=== PATIENT | male | born 1930 | race Caucasian/White ===

== ENCOUNTER 2016-07-24 12:48 | Inpatient (IN) | payer MEDICARE, BC ==
[2016-07-24] MEDS ORDERED: NS 0.9% 1000 ML* 1,000 ML IV SCH ×2 (13:00→15:45)
[2016-07-24 13:41] LABS: Hematocrit 42 % (42-52); Hemoglobin 12.8 g/dl (14.0-18.0); Mean Corpuscular HGB Conc 31 g/dl (31-36); Mean Corpuscular Hemoglobin 29 pg (27-31); Mean Corpuscular Volume 93 fL (80-94); Red Blood Count 4.47 10^6/ul (4.0-5.4); Red Cell Distribution Width 18 % (10.5-15); White Blood Count 17.6 10^3/ul (3.5-10.8)
[2016-07-24 13:53] LABS: Comments Flag Yes
[2016-07-24 14:05] LABS: Ammonia 52 mol/L (16-53)
[2016-07-24 14:08] LABS: B Type Natriuretic Peptide 1053 pg/mL; Troponin I 0.16 ng/mL (<0.04)
[2016-07-24 14:09] LABS: Albumin 2.7 g/dL (3.2-5.2); BUN/Creatinine Ratio 20.6 (8-20); C Reactive Protein 310.08 mg/L (< 5.00); Calcium 9.5 mg/dL (8.6-10.3); EGFR African American 16.3 (>60); EGFR Non-African American 12.6 (>60); Globulin 4.4 g/dL (2-4); Magnesium 2.9 mg/dL (1.9-2.7); Potassium 5.1 mmol/L (3.5-5.0); Total Bilirubin 0.6 mg/dL (0.2-1.0); Total Protein 7.1 g/dL (6.4-8.9)
--- NOTE | 2016-07-24 14:11 | RAD ---
HISTORY: Altered mental status COMPARISONS: April 20, 2016 VIEWS:1: Single frontal portable view of the chest at 1:45 PM FINDINGS: LINES AND TUBES: A left-sided pacemaker is noted CARDIOMEDIASTINAL SILHOUETTE: The cardiac silhouette is enlarged. The cardiomediastinal silhouette is otherwise normal for portable technique. PLEURA: The costophrenic angles are sharp. No pleural abnormalities are noted. LUNG PARENCHYMA: There is a diffuse reticular pattern with indistinct pulmonary vessels. ABDOMEN: The upper abdomen is clear. There is no subphrenic gas. BONES AND SOFT TISSUES: The patient is status post median sternotomy. IMPRESSION: CARDIOMEGALY WITH PULMONARY INTERSTITIAL EDEMA
[2016-07-24 14:12] LABS: Add Diff/Slide Review? Slide Review Added; Mean Platelet Volume 10 um3 (7.4-10.4)
[2016-07-24] MEDS ORDERED: NS 0.9% 1000 ML* 1,000 ML IV ONE (14:19)
[2016-07-24 14:41] LABS: TSH (Thyroid Stimulating Horm) 1.62 mcIU/mL (0.34-5.60)
[2016-07-24 15:11] VITALS: BP 99/59
[2016-07-24] MEDS ORDERED: Ondansetron INJ* 2 MG/ML VIAL IV PRN (15:38)
[2016-07-24] MEDS ORDERED: Acetaminophen SUPP* 650 MG SUPP PR PRN (15:38)
[2016-07-24] MEDS ORDERED: Atropine 1% (ORAL/SL)* 15 ML BTL SL PRN (15:49)
[2016-07-24] MEDS: Morphine INJ* 2 MG/ML 1 ML CARPUJECT IV PRN (15:59)
[2016-07-24] MEDS: LORazepam INJ* 2 MG/ML 1 ML VIAL IV PUSH PRN (15:59)
[2016-07-24] MEDS ORDERED: Cefepime(*) 0.5 GM in NS 0.9% 50 ML* 50 ML IVPB SCH (16:00)
--- NOTE | 2016-07-24 16:46 | ED ---
Eli Copeland Anna, scribed for Luis Myers MD on 07/24/16 at 1312 . Lower Extremity - HPI Summary HPI Summary: Patient is an 86 y/o male BIBA to [facility] presenting with pedal edema that began a few days ago. He has additionally had fluid buildup in his lungs. He frequently punches and pulls hair when he is alert, and he has bruising on his legs and arms because of this. His history is significant for CAD, dementia, DVT , prostate CA, a fib, and HTN. LEVEL 5 CAVEAT UNABLE TO OBTAIN FULL HISTORY DUE TO HISTORY OF DEMENTIA. - History of Current Complaint Chief Complaint: EDAltMentalStatus Stated Complaint: AMS Time Seen by Provider: 07/24/16 12:53 Hx Obtained From: EMS - Allergies/Home Medications Allergies/Adverse Reactions: Allergies Allergy/AdvReac Type Severity Reaction Status Date / Time Nitroglycerin Allergy Severe Headache Verified 04/20/16 22:05 Latex Allergy Unknown Unknown Verified 04/20/16 22:05 Reaction Details PMH/Surg Hx/FS Hx/Imm Hx Endocrine/Hematology History: Reports: Hx Anticoagulant Therapy Cardiovascular History: Reports: Hx Atrial Fibrillation, Hx Auto Implanted Cardiovert Defib, Hx Cardiomegaly, Hx Congestive Heart Failure, Hx Coronary Artery Disease, Hx Deep Vein Thrombosis, Hx Hypercholesterolemia, Hx Hypertension, Hx Pacemaker/ICD, Hx Peripheral Vascular Disease, Hx Syncope, Other Cardiovascular Problems/Disorders - lymphedema Respiratory History: Reports: Hx Chronic Obstructive Pulmonary Disease (COPD), Hx Pneumonia, Other Respiratory Problems/Disorders - hypoxia GI History: Reports: Hx Gastrointestinal Bleed History: Reports: Hx Chronic Renal Failure - stage 3, Other Problems/ Disorders - Prostate cancer, chronic UTIs Musculoskeletal History: Reports: Hx Arthritis Sensory History: Reports: Hx Contacts or Glasses - not with pt, Hx Hearing Problem - [facility] [place] [facility]aml[facility] History: Reports: Hx Contacts or Glasses - not with pt Neurological History: Reports: Hx Dementia, Other Neuro Impairments/Disorders - POOR HISTORIAN, sun-downer Psychiatric History: Reports: Hx Anxiety, Hx Depression, Hx of Violent Episodes Against Others - Threatened to punch ED staff but is calm and cooperative presently - Cancer History Cancer Type, Location and Year: Prostate Hx Radiation Therapy: Yes - Surgical History Surgery Procedure, Year, and Place: CABG, Pacemaker implanted, open heart Hx Anesthesia Reactions: No - Immunization History Date of Tetanus Vaccine: unsure Date of Influenza Vaccine: 2016 Infectious Disease History: Unable to Obtain/Confirm Infectious Disease History: Denies: Hx of Known/Suspected MRSA, Traveled Outside the [place] in Last 30 Days - Family History Known Family History: Positive: Cardiac Disease - STEMI < 55 y/o (father), Other - CVA (mother, leading to extremis) - Social History Occupation: Retired Lives: [facility] Alcohol Use: None Alcohol Amount: NONE RECENTLY Hx Substance Use: No Substance Use Type: Reports: None Hx Tobacco Use: Yes Smoking Status (MU): Former Smoker Type: Cigarettes Amount Used/How Often: 1 ppd Length of Time of Smoking/Using Tobacco: 45 year smoker Have You Smoked in the Last Year: No Review of Systems - ROS Summary Review of Systems Summary: LEVEL 5 CAVEAT UNABLE TO OBTAIN FULL HISTORY DUE TO HISTORY OF DEMENTIA. Positive: Other - fluid buildup Positive: Edema Positive: Bruising All Other Systems Reviewed And Are Negative: No Physical Exam Triage Information Reviewed: Yes Vital Signs On Initial Exam: Initial Vitals Temp Pulse Resp BP Pulse Ox 98.4 F 75 20 117/93 93 07/24/16 12:50 07/24/16 12:50 07/24/16 12:50 07/24/16 12:50 07/24/16 12:50 Vital Signs Reviewed: Yes Appearance: Positive: Well-Appearing, No Pain Distress Skin: Positive: Warm, Skin Color Reflects Adequate Perfusion, Dry Head/Face: Positive: Normal Head/Face Inspection Eyes: Positive: EOMI, DALE ENT: Positive: Normal ENT inspection Neck: Positive: Supple, Nontender Respiratory/Lung Sounds: Positive: Other - Rhoncorous lung sounds Cardiovascular: Positive: RRR Abdomen Description: Positive: Nontender, Soft Bowel Sounds: Positive: Present Musculoskeletal: Positive: Normal, Strength/ROM Intact Neurological: Positive: Normal, Sensory/Motor Intact, Other - Minimally responsive. Negative: Alert, Oriented to Person Place, Time Psychiatric: Positive: Normal Diagnostics - Vital Signs Vital Signs Temp Pulse Resp BP Pulse Ox 07/24/16 12:50 98.4 F 75 20 117/93 93 - Laboratory Lab Results: Lab Results 07/24/16 07/24/16 07/24/16 Range/Units 13:30 13:30 13:35 WBC 17.6 H (3.5-10.8) 10^3/ul RBC 4.47 (4.0-5.4) 10^6/ul Hgb 12.8 L (14.0-18.0) g/dl Hct 42 (42-52) % MCV 93 (80-94) fL MCH 29 (27-31) pg MCHC 31 (31-36) g/dl RDW 18 H (10.5-15) % Plt Count 260 (150-450) 10^3/ul MPV 10 (7.4-10.4) um3 Neut % (Auto) 82.4 (38-83) % Lymph % (Auto) 11.1 L (25-47) % [place] % (Auto) 4.9 (1-9) % Eos % (Auto) 1.3 (0-6) % Baso % (Auto) 0.3 (0-2) % Absolute Neuts (auto) 14.5 H (1.5-7.7) 10^3/ul Absolute Lymphs (auto) 2.0 (1.0-4.8) 10^3/ul Absolute Monos (auto) 0.9 H (0-0.8) 10^3/ul Absolute Eos (auto) 0.2 (0-0.6) 10^3/ul Absolute Basos (auto) 0 (0-0.2) 10^3/ul Absolute Nucleated RBC 0 10^3/ul Nucleated RBC % 0 INR (Anticoag Therapy) 1.07 (0.89-1.11) APTT 16.6 L (26.0-36.3) seconds Sodium 160 H* (133-145) mmol/L Potassium 5.1 H (3.5-5.0) mmol/L Chloride 126 H (101-111) mmol/L Carbon Dioxide 26 (22-32) mmol/L Anion Gap 8 (2-11) mmol/L BUN 92 H (6-24) mg/dL Creatinine 4.46 H (0.67-1.17) mg/dL Est GFR ( Amer) 16.3 (>60) Est GFR (Non-Af Amer) 12.6 (>60) BUN/Creatinine Ratio 20.6 H (8-20) Glucose 94 (70-100) mg/dL Lactic Acid (0.5-2.0) mmol/L Calcium 9.5 (8.6-10.3) mg/dL Magnesium 2.9 H (1.9-2.7) mg/dL Total Bilirubin 0.60 (0.2-1.0) mg/dL AST 55 H (13-39) U/L ALT 28 (7-52) U/L Alkaline Phosphatase 79 (34-104) U/L Ammonia (16-53) mol/L Total Creatine Kinase 851 H (10-223) U/L CK-MB (CK-2) 23.3 H (0.6-6.3) ng/mL Troponin I 0.16 H* (<0.04) ng/mL C-Reactive Protein 310.08 H (< 5.00) mg/L B-Natriuretic Peptide ( - 100) pg/mL Total Protein 7.1 (6.4-8.9) g/dL Albumin 2.7 L (3.2-5.2) g/dL Globulin 4.4 H (2-4) g/dL Albumin/Globulin Ratio 0.6 L (1-3) Lipase 31 (11.0-82.0) U/L TSH 1.62 (0.34-5.60) mcIU/mL 07/24/16 07/24/16 Range/Units 13:35 13:35 WBC (3.5-10.8) 10^3/ul RBC (4.0-5.4) 10^6/ul Hgb (14.0-18.0) g/dl Hct (42-52) % MCV (80-94) fL MCH (27-31) pg MCHC (31-36) g/dl RDW (10.5-15) % Plt Count (150-450) 10^3/ul MPV (7.4-10.4) um3 Neut % (Auto) (38-83) % Lymph % (Auto) (25-47) % [place] % (Auto) (1-9) % Eos % (Auto) (0-6) % Baso % (Auto) (0-2) % Absolute Neuts (auto) (1.5-7.7) 10^3/ul Absolute Lymphs (auto) (1.0-4.8) 10^3/ul Absolute Monos (auto) (0-0.8) 10^3/ul Absolute Eos (auto) (0-0.6) 10^3/ul Absolute Basos (auto) (0-0.2) 10^3/ul Absolute Nucleated RBC 10^3/ul Nucleated RBC % INR (Anticoag Therapy) (0.89-1.11) APTT (26.0-36.3) seconds Sodium (133-145) mmol/L Potassium (3.5-5.0) mmol/L Chloride (101-111) mmol/L Carbon Dioxide (22-32) mmol/L Anion Gap (2-11) mmol/L BUN (6-24) mg/dL Creatinine (0.67-1.17) mg/dL Est GFR ( Amer) (>60) Est GFR (Non-Af Amer) (>60) BUN/Creatinine Ratio (8-20) Glucose (70-100) mg/dL Lactic Acid 3.2 H* (0.5-2.0) mmol/L Calcium (8.6-10.3) mg/dL Magnesium (1.9-2.7) mg/dL Total Bilirubin (0.2-1.0) mg/dL AST (13-39) U/L ALT (7-52) U/L Alkaline Phosphatase (34-104) U/L Ammonia 52 (16-53) mol/L Total Creatine Kinase (10-223) U/L CK-MB (CK-2) (0.6-6.3) ng/mL Troponin I (<0.04) ng/mL C-Reactive Protein (< 5.00) mg/L B-Natriuretic Peptide 1053 H ( - 100) pg/mL Total Protein (6.4-8.9) g/dL Albumin (3.2-5.2) g/dL Globulin (2-4) g/dL Albumin/Globulin Ratio (1-3) Lipase (11.0-82.0) U/L TSH (0.34-5.60) mcIU/mL Result Diagrams: 07/24/16 13:30 07/24/16 13:35 Lab Statement: Any lab studies that have been ordered have been reviewed, and results considered in the medical decision making process. - Radiology CXR Xray Interpretation: Positive (See Comments) Radiology Interpretation Completed By: Radiologist - IMPRESSION: CARDIOMEGALY WITH PULMONARY INTERSTITIAL EDEMA Lower Extremity Course/Dx - Course Assessment/Plan: ADMIT HOSPITALIST CRITICAL - Diagnoses Provider Diagnoses: Renal failure, Dehydration, CHF (congestive heart failure) - Physician Notifications Discussed Care of Patient With: Dr. Maddox (hospitalist) at 1430. Accepts patient for admission. Discharge - Discharge Plan Condition: Critical Disposition: ADMITTED TO [facility] Referrals: Keenan Stoll MD [Primary Care Provider] - The documentation as recorded by the Eli moran Anna accurately reflects the service I personally performed and the decisions made by , Luis Myers MD.
[2016-07-24] MEDS ORDERED: Scopolamine 1.5 mg* PATCH TRANSDERM SCH (17:30)
--- NOTE | 2016-07-24 20:27 | HP ---
HISTORY AND PHYSICAL: DATE OF ADMISSION: 07/24/16 PRIMARY CARE PROVIDER: Dr. Stoll. MY ATTENDING PHYSICIAN WHILE IN THE HOSPITAL: Dr. John Maddox * (report dictated by Chase Hernández NP) CONSULTING CLEAN RICE BROKER: Dr. Doan. CHIEF COMPLAINT: 1. Abnormal labs. 2. Lethargy. HISTORY OF PRESENT ILLNESS: I would like to preface this report by stating that the patient has a significant amount of severe dementia, usually unable to give much history. Most of the history is obtained from reviewing old records from the nursing, in addition to this reviewing the recent events with the patient's daughter. The patient's daughter states that over the last 2 to 3 weeks, the patient become more lethargic, has not been acting himself. She has noticed that he has had an increasing confusion, he has not been feeding himself like he used to, and he has not been talking as much as he used to. She does state that there has been some difficulty with his diuretics. He has had them recently increased, particularly his spironolactone and they have been trying to reduce the amount of fluid in his legs as he does have a history of CHF. The patient was tolerating these well initially, they were following his labs on a weekly basis. Labs were obtained today and it was noted that there were significant abnormalities compared to his labs a week ago. There have also been reports of some diarrhea. According to the daughter, she has noticed that he has been having some loose stools the last couple of days as well. There have been no reports of fever or any vomiting according to the daughter and she does report that he has several skin tears to both lower extremities from blisters related to the fluid and the edema that was in his legs. She was instructed today to come to the hospital to be evaluated. The patient was noted to have significant electrolyte and multiple metabolic derangements and hospitalist service was asked to evaluate for admission. PAST MEDICAL HISTORY: The patient has a history of: 1. CHF. 2. Venous stasis. 3. Hyperlipidemia. 4. Hypertension. 5. GERD. 6. DVTs. 7. Prostate cancer. 8. Dementia. 9. CAD. 10. COPD. 11. CKD. PAST SURGICAL HISTORY: He has had: 1. Prostate cancer. 2. CABG. 3. Pacemaker insertion. MEDICATIONS: His home meds according to [facility] notes include: 1. Spironolactone 50 mg p.o. b.i.d. 2. Zoloft 100 mg p.o. daily. 3. Xarelto 10 mg p.o. daily. 4. Ranitidine 75 mg daily. 5. Multivitamin 1 tablet daily. 6. Toprol-XL 100 mg p.o. daily. 7. Mevacor 10 mg p.o. daily. 8. Lisinopril 5 mg p.o. daily. 9. Cipro 250 mg p.o. b.i.d. 10. Tylenol 650 p.o. daily as needed. ALLERGIES TO MEDICATIONS: Include NITRO and LATEX. FAMILY HISTORY: His mother has history of CVA. Father had MN. SOCIAL HISTORY: He is a former smoker, 1 to 2 packs a day. Occasionally drinks alcohol in the past. He currently resides at [facility]. Surrogate decision maker is his daughter. REVIEW OF SYSTEMS: Unable to obtain because of the underlying dementia. PHYSICAL EXAMINATION GENERAL: At this time, Mr. Davis is an 86-year-old male patient. He is chronically ill appearing. He is sitting in the ER stretcher. He appears to be mildly tachypneic. VITAL SIGNS: Reveal blood pressure of 99/59 with a pulse of 61, respirations 24 , O2 sat 98%, and temperature of 98.4. HEENT: Head: Atraumatic. Eyes: Sclerae anicteric. Throat: Oral mucosa appeared to be dry. No oropharyngeal erythema. NECK: Supple. LUNGS: He had crackles noted in the upper lobes. Equal diaphragmatic expansion. HEART: Heart sounds S1 and S2. Regular rate and rhythm. No murmurs, rubs, or gallops. ABDOMEN: Soft and flat. There was tenderness in the right upper quadrant. EXTREMITIES: Pulses were diminished in the pedal area. His lower legs are contracted. He is moving his upper extremities. NEUROLOGIC: He is alert to himself only. He is not following any commands. He is moaning in pain. He has no gross obvious focal deficits. SKIN: He has multiple skin abrasions to bilateral lower extremities. He has stage II pressure ulcer noted to his sacrum. DIAGNOSTIC STUDIES/LAB DATA: Laboratory data revealed a WBC of 17.6, RBC of 4.47, hemoglobin 12.8, hematocrit of 42, and a platelet count of 260. His INR was 1.07, PTT of 16.6. His sodium was 160, potassium of 5.1, chloride 126, his bicarb was 26, his BUN was 92, his creatinine was 4.46, his glucose was 94, his lactate was 3.2, his calcium was 9.5, mag 2.9. Total bili 0.6, AST 55, ALT 28. CK was 851, CK-MB was 23.3. Troponin was 0.16. His CRP was 310. His BNP was 1053. His lipase was 31. TSH was 1.62. The patient did have a chest x-ray obtained today. Under my review, it did show a cardiomegaly with pulmonary interstitial edema. Old medical records were reviewed. He had an echo last week, which showed an EF of 35% to 40%. In addition to this , he had a creatinine, which showed a creatinine of 2.1 just about a week ago. Old medical records were reviewed. ASSESSMENT AND PLAN: Mr. Davis is an 86-year-old male patient, coming into the ER today with complaints of altered mental status, abnormal laboratory data , on evaluation today found to be in multisystem organ failure, hospitalist service was asked to evaluate for admission. He will be admitted under observation status for: 1. Multisystem organ failure. I did discuss this frankly with the family that his prognosis was grave. I did discuss with them that before even giving him fluids, he did sound like he was in heart failure and what I feel is happening is that he appears to be profoundly hypovolemic. In addition to this, I think there is an underlying component of sepsis as evidenced by white count of 17, 000. He has multiple skin abrasions. I am concerned that on the right heel, there is an area of necrosis, which may be the source of infection, which certainly again may progress him in to septic shock and with his hypovolemic state, certainly put him in multisystem organ failure and I did discuss with the family that he would require several liters of fluids, which at this point I think would make his breathing worse and most likely he would end up with intubation as he would most likely go into progressive worsening congestive heart failure. I did discuss this with the family. The daughter called the patient's other daughter and they discussed that they would like to keep their father comfortable at this point given the severity of his electrolyte abnormalities and multisystem organ failure. I did discuss that he appeared to be severely hypernatremic. He appeared to be again in severe acute renal failure, all of which deemed to be treated with fluids, which most likely how weak was his heart, as he would not be able to tolerate and they felt that his wishes would be not to pursue further care, so at this point, I did institute comfort measures only. I stopped his medications. I have initiated morphine and Ativan and atropine along with scopolamine patch. In addition to this, I have offered drawbridge tender's support and I have placed a consult with Palliative Care and I did discuss this with my attending, Dr. Maddox; he was in agreement given the overall poor and grave prognosis. 2. Fluids, electrolytes, and nutrition. We can have comfort diet if he is awaken enough to eat. 3. Code status: Again, DNR/DNI. 4. DVT prophylaxis. He is on comfort care. TIME SPENT: On this admission 80 minutes, greater than half the time was spent [id number] with the patient obtaining my history and physical, other half the time was spent going over the plan of care with the patient and implementing the plan of care. I did discuss the plan of care with my attending; Dr. Maddox; he is in agreement. CHASE HERNÁNDEZ NP CC: Dr. Stoll; Dr. Doan * [id number]/[facility] #: [id number] [facility] HOSPIT[facility]
--- NOTE | 2016-07-24 22:33 | CONS ---
PALLIATIVE CARE CONSULT REPORT: DATE OF CONSULT: 07/24/16 PRIMARY CARE PHYSICIAN: Keenan Stoll MD REQUESTING PROVIDER FOR CONSULT: Jung Heránndez NP HISTORY OF PRESENT ILLNESS: This is an 86-year-old male with a past medical history of epsu-mb-[id number] dementia, CHF, CKD, CAD, and COPD, who presented to the emergency room from [facility] with altered mental status. The patient unable to provide any history as he is minimally responsive. His daughter, Phoebe, who is at the bedside, who is the healthcare proxy provides most of the history. She states that he has had rather significant decline over the past 3 weeks, becoming more and more unresponsive with limited interaction and decrease in appetite. The family was recently seen by Dr. Stoll and he felt that his kidneys were actually improving and they were trying to diurese him as an outpatient. He has had issues with wound healing on his lower extremities and his sacrum with pressure ulcer. He has also a significant amount of arthritis in his knees and hips and he does not ambulate. On arrival to the emergency room, the patient had significant metabolic derangements including worsening renal failure and hypernatremia and the discussion was grim and poor prognosis and the daughter states that she would like to keep him comfortable as this is what he would want if there is no chance for meaningful recovery with his presentation. The patient was admitted on comfort measures to [address] [place] [address]. Unable to obtain review of systems. PAST MEDICAL HISTORY: 1. History of ischemic cardiomyopathy with an ejection fraction of 35% to 40%. 2. History of venous stasis. 3. History of poor wound healing and chronic pressure ulcers. 4. Hyperlipidemia. 5. Hypertension. 6. GERD. 7. History of DVTs. 8. History of prostate cancer. 9. History of aowj-qu-plypvpfu dementia. 10. Coronary artery disease, status post bypass. 11. COPD. 12. History of CKD. 13. History of pacemaker placement. MEDICATIONS: Inpatient medications include: 1. Tylenol 650 mg every 4 hours as needed. 2. Atropine 2 drops sublingual q.2 hours as needed for discomfort secretion. 3. Morphine 2 mg every 2 hours as needed for pain. 4. Zofran 4 mg IV every 6 hours as needed. 5. Scopolamine patch transdermal for secretions. ALLERGIES: NITROGLYCERIN and LATEX. FAMILY HISTORY: Reviewed and noncontributory. SOCIAL HISTORY: The patient resides at the [facility]. He is nonambulatory. He is a former smoker. No recent alcohol use. Surrogate decision maker is Phoebe. His MOLST status is DNR/DNI. REVIEW OF SYSTEMS: Unable to obtain. PHYSICAL EXAM: Vitals: Temp 98.4, pulse rate 75, respiratory rate 20, oxygen saturation 93% on 2 L, blood pressure 117/73. General: Minimally responsive, unresponsive to tactile stimuli. The patient with labored breathing. HEENT: Pupils are equal and reactive, anicteric. Head is normocephalic. Oropharynx: Mucous membranes are dry. Cardiac: Regular rate and rhythm, soft systolic murmur. Respiratory: Diminished breath sounds. Positive crackles bilaterally. Abdomen: Soft, nondistended, diffuse tenderness. Extremities: The patient with chronic venous stasis, several areas of ecchymosis and open wound areas and necrotic tissue on his toes. Distant pulses bilaterally. Neurologic: As mentioned minimally responsive, unable to interact or follow commands. DIAGNOSTIC STUDIES/LAB DATA: White count 17.6, hemoglobin 12.8, hematocrit 42, platelets 260. INR 1.07. Sodium 160, potassium 5.1, chloride 126, bicarb 26, BUN 92, creatinine 4.46, lactic acid 3.2. Troponin 0.16. CRP 310. Chest x-ray: Cardiomegaly with pulmonary interstitial edema. ASSESSMENT AND PLAN: This is an 86-year-old male with past medical history of multiple comorbidities including dementia, chronic kidney disease, congestive heart failure, and chronic obstructive pulmonary disease, who presents to the emergency room from the alf with altered mental status, found to have several metabolic derangements. The patient with significant hypernatremia and significant renal failure. With his comorbidities and his presentation and his multiorgan system failure, there does not seem to be any chance in a meaningful recovery for this individual. The daughter states that she wants to keep him comfortable. The plan is to keep him on morphine and Ativan as needed. He is eligible for hospice for his multiorgan failure presentation. I do not think the patient will survive this hospitalization or to be able to be transferred back to the alf with hospice care due to his labile state and instability. Thank you for this consultation. PATIENT TIME: Greater than 45 minutes was spent doing this consultation, more than half the time was spent in direct patient contact. CC: Keenan Stoll MD* [id number]/[facility] #: [id number] ROSIB[place]
[2016-07-25] MEDS: Morphine INJ* 2 MG/ML 1 ML CARPUJECT IV PRN ×4 (06:01→10:07)
[2016-07-25] MEDS: LORazepam INJ* 2 MG/ML 1 ML VIAL IV PUSH PRN (06:59)
--- NOTE | 2016-07-26 02:19 | DS ---
DISCHARGE SUMMARY/ NOTE: DATE OF ADMISSION: 07/24/16 DATE OF : 07/25/16 PRIMARY CARE PROVIDER: Dr. Keenan Stoll. DISCHARGE DIAGNOSES: 1. Multiple system organ failure. 2. Possible sepsis of unclear source. 3. Severe hyponatremia. 4. Leukocytosis. 5. Hyperkalemia. 6. Acute kidney injury. 7. Lactic acidosis. 8. Elevated troponin. SECONDARY DIAGNOSES: 1. Ischemic cardiomyopathy with ejection fraction of 35% to 40%. 2. Venous stasis. 3. Poor wound healing and chronic pressure ulcers. 4. Hyperlipidemia. 5. Hypertension. 6. Gastroesophageal reflux disease. 7. History of deep venous thromboses. 8. Prostate cancer. 9. Ityp-fy-qwsauafb dementia. 10. Coronary artery disease, status post CABG. 11. Chronic obstructive pulmonary disease. 12. Status post pacemaker. HOSPITAL COURSE: Mr. Davis was an 86-year-old male with a past medical history as stated above, who was transferred from [facility] to the emergency room due to lethargy. As per HPI, for the past 2 to 3 weeks, the patient has become more lethargic, not acting as himself, not able to feed himself. The daughter had noticed some loose stools also. For more details about his presentation, I refer you to his history and physical. He was found to have marked laboratory abnormalities with acute kidney, severe hyponatremia, leukocytosis, lactic acidosis suggesting multisystem organ failure. He was also felt to be profoundly hypovolemic with possible sepsis. After reviewing his poor prognosis with family, decision was made to make him comfort care measures only. The patient was admitted to the medical floor, seen in consultation by Palliative Care (Dr. Doan) and she was in agreement with management. The patient on 07/25/16 at 11:05 a.m. Please keep in mind, this is a summarized version of this patient's hospital stay. If you need more information, please feel free to call me at [phone] or please obtain the full medical records. TIME SPENT: Approximately 40 minutes were spent to complete this discharge. CC: Dr. Keenan Stoll* [id number]/[facility] #: [id number] [facility]
[2016-07-27] MEDS ORDERED: Scopolamine PATCH Remove* 1 NOTE MISC PATCH OFF SCH (17:30)
== END 2016-07-25 11:05 | disposition expired | DRG 872 ==
LOC: ED 12:48 → MED 15:28
PROVIDERS: ADMIT Internal Medicine; ATTEND Internal Medicine
DX: A41.9 Sepsis, unspecified organism (principal); N17.9 Acute kidney failure, unspecified; L89.152 Pressure ulcer of sacral region, stage 2; I13.0 Hypertensive heart and chronic kidney disease with heart failure and stage 1 through stage 4 chronic kidney disease, or unspecified chronic kidney disease; E87.0 Hyperosmolality and hypernatremia; E87.2 Acidosis; I50.9 Heart failure, unspecified; F03.90 Unspecified dementia, unspecified severity, without behavioral disturbance, psychotic disturbance, mood disturbance, and anxiety; I25.810 Atherosclerosis of coronary artery bypass graft(s) without angina pectoris; N18.9 Chronic kidney disease, unspecified; E87.5 Hyperkalemia; I25.5 Ischemic cardiomyopathy; E86.1 Hypovolemia; D72.829 Elevated white blood cell count, unspecified; E78.5 Hyperlipidemia, unspecified; I87.8 Other specified disorders of veins; R74.8 Abnormal levels of other serum enzymes; K21.9 Gastro-esophageal reflux disease without esophagitis; J44.9 Chronic obstructive pulmonary disease, unspecified; Z95.0 Presence of cardiac pacemaker; Z86.718 Personal history of other venous thrombosis and embolism; Z85.46 Personal history of malignant neoplasm of prostate; Z79.01 Long term (current) use of anticoagulants; Z95.1 Presence of aortocoronary bypass graft; Z79.1 Long term (current) use of non-steroidal anti-inflammatories (NSAID); Z79.899 Other long term (current) drug therapy; Z88.8 Allergy status to other drugs, medicaments and biological substances; Z91.040 Latex allergy status; Z82.49 Family history of ischemic heart disease and other diseases of the circulatory system; Z87.891 Personal history of nicotine dependence
CPT/HCPCS: 36415; 71010; 80053; 82140; 82550; 82553; 83605; 83690; 83735; 83880; 84443; 84484; 85025; 85610; 85730; 86140; 87641; A9270-GY; J2060; J2270; J2405